=== PATIENT | male | born 1965 | race Two or more races ===

== ENCOUNTER 2021-04-27 10:00 | Inpatient (IN) | payer OTHER ==
[2021-04-27] MEDS ORDERED: TAMSULOSIN HCL0.4 MG PO (11:48)
[2021-04-30] MEDS ORDERED: SILDENAFIL CIT100 MG (13:01)
[2021-04-30] MEDS ORDERED: MAXIMUM D3325 MCG (13:01)
[2021-04-30] MEDS ORDERED: CANDESARTAN CILE8 M1 (13:01)
[2021-04-30] MEDS ORDERED: CARVEDILOL12.5 M1 (13:01)
[2021-04-30] MEDS ORDERED: BUPROPION HCL150 M1 (13:02)
[2021-04-30] MEDS ORDERED: QUETIAPINE FUMA25 MG (13:02)
[2021-04-30] MEDS ORDERED: MELOXICAM15 MG (13:02)
[2021-04-30] MEDS ORDERED: PANTOPRAZOLE SO40 MG (13:02)
[2021-04-30] MEDS ORDERED: GABAPENTIN400 MG (13:02)
[2021-04-30] MEDS ORDERED: PAROXETINE HCL10 MG (13:02)
[2021-04-30] MEDS ORDERED: LIDOCAINE1 EACH (13:02)
[2021-04-30] MEDS ORDERED: RESTORIL30 MG (13:03)
[2021-04-30] MEDS ORDERED: DICLOFENAC SOD100 GM (13:03)
[2021-04-30] MEDS ORDERED: CLONAZEPAM2 MG (13:03)
[2021-04-30] MEDS ORDERED: NORFLEX100MG (13:03)
[2021-04-30] MEDS ORDERED: COLACE100 MG PO (13:46)
[2021-04-30] MEDS ORDERED: AMOX-CLAV 875-1 EAC1 PO (13:47)
[2021-04-30] MEDS ORDERED: PERCOCET 5-3251 EACH PO (13:47)
[2021-04-30] MEDS ORDERED: NEURONTIN800 MG PO (13:47)
[2021-04-30] MEDS ORDERED: MEDROLPACK PO (13:47)
== END 2021-05-01 11:49 | disposition home or self-care (01) | DRG 455 ==
LOC: PED 04-30 06:08 → O/R 04-30 06:08 → SURH 04-30 10:00 → PED 04-30 17:05 → SURH 04-30 22:45 → PED 05-01 11:49
PROVIDERS: ADMIT Orthopaedic Surgery Orthopaedic Surgery of the Spine; ATTEND Orthopaedic Surgery Orthopaedic Surgery of the Spine
PROC: 0SG10J1 Fusion of 2 or more Lumbar Vertebral Joints with Synthetic Substitute, Posterior Approach, Posterior Column, Open Approach (ICD-10-PCS; 2021-04-30)
PROC: 0QB30ZZ Excision of Left Pelvic Bone, Open Approach (ICD-10-PCS; 2021-04-30)
PROC: 07DR0ZZ Extraction of Iliac Bone Marrow, Open Approach (ICD-10-PCS; 2021-04-30)
PROC: 0SG10A0 Fusion of 2 or more Lumbar Vertebral Joints with Interbody Fusion Device, Anterior Approach, Anterior Column, Open Approach (ICD-10-PCS; principal; 2021-04-30 22:45)
DX: M41.86 Other forms of scoliosis, lumbar region (principal); M48.062 Spinal stenosis, lumbar region with neurogenic claudication; M51.36 Other intervertebral disc degeneration, lumbar region; M41.56 Other secondary scoliosis, lumbar region